=== PATIENT | male | born 1950 | race Caucasian/White ===

== ENCOUNTER 2017-06-10 09:36 | Emergency (ER) | payer OTHER ==
[~2017-06-10] VITALS: Ht 180.3 cm; Wt 84.0 kg
[~2017-06-10 09:36] MED LIST: AMLODIPINE BESYL5 MG PO; DOLOPHINE HCL5 MG PO; FENOFIBRATE145 M1 PO; GLYBURIDE-METF1 EAC1 PO; LOPRESSOR50 MG PO; LOSARTAN-HCTZ1 EAC1 PO; OXYCODONE HCL5 MG PO; ZITHROMAX Z-PA250 MG PO
[2017-06-10 10:56] LABS: CARBON DIOXIDE (BICARBONATE) 29.9 MEQ/L (20-31)
[2017-06-10 11:01] LABS: CHLORIDE 94 mEq/L (99-109); POTASSIUM 4.9 mEq/L (3.7-5.4); SODIUM 131 mEq/L (136-147)
[2017-06-10 11:07] LABS: CREATININE 1.8 mg/dL (0.6-1.3); GFR ESTIMATE (CALCULATED) 40 mL/min/ (58.99-99999)
[2017-06-10 11:08] LABS: UREA NITROGEN (BUN) 31 mg/dL (9-23)
[2017-06-10 11:10] LABS: GLUCOSE 442 mg/dL (70-99)
[2017-06-10 11:18] LABS: APPEARANCE CLEAR ((CLEAR)); BILIRUBIN NEGATIVE; BLOOD NEGATIVE; COLOR YELLOW ((YELLOW)); GLUCOSE (STRIP) >=500; KETONES 5; LEUKOCYTES NEGATIVE; NITRITE NEGATIVE; PROTEIN (STRIP) NEGATIVE; SPECIFIC GRAVITY 1.027 (1.000-1.030); UROBILINOGEN 0.2 MG/DL (0.2-1.0)
[2017-06-10 15:13] VITALS: BP 101/63
== END 2017-06-10 15:15 | disposition home or self-care (01) ==
LOC: EME 09:36
PROVIDERS: Physician Assistant
DX: E11.65 Type 2 diabetes mellitus with hyperglycemia (principal); T38.0X5A Adverse effect of glucocorticoids and synthetic analogues, initial encounter; Z79.84 Long term (current) use of oral hypoglycemic drugs; G89.29 Other chronic pain; M54.5 Low back pain; Z79.891 Long term (current) use of opiate analgesic; Z85.528 Personal history of other malignant neoplasm of kidney; Z85.820 Personal history of malignant melanoma of skin
CPT/HCPCS: 80048; 81003; 82010; 82803; 82948; 99281; 99285; J2270; J7030; J7040